=== PATIENT | male | born 1970 | race Caucasian/White ===

== ENCOUNTER 2021-07-27 09:53 | Emergency (ER) | payer SELFPAY ==
--- NOTE | 2021-07-27 09:57 | ED.URI ---
HPI - URI/Sore Throat General Chief Complaint: Upper Respiratory Infection Stated Complaint: cough tight chest Time Seen by Provider: 07/27/21 10:19 Source: patient and RN notes reviewed Mode of arrival: ambulatory Limitations: no limitations History of Present Illness HPI Narrative: 50-year-old male presents concern for 1/2 weeks of cough, shortness of breath, chest tightness, nasal congestion, ear fullness and pain, nasal drainage. He reports he has been taking Mucinex and antihistamines without relief. He denies fever, body aches, chills, sweats. Reports he has been using an albuterol inhaler several times a day which he ran out of this morning. He reports he is a smoker, he denies ever being diagnosed with COPD or emphysema. MD elicited complaint: cough and sore throat Related Data Home Medications Medication Instructions Recorded Confirmed chlorpheniramine-pseudoephed 10 ml PO Q4-6H PRN 07/27/21 07/27/21 [Vicks DayQuil] clonazepam 0.5 mg PO DAILY 07/27/21 07/27/21 guaifenesin [Mucinex] 600 mg PO BID 07/27/21 07/27/21 lisinopril 20 mg PO BID 07/27/21 07/27/21 metoprolol tartrate 50 mg PO BID 07/27/21 07/27/21 Allergies Allergy/AdvReac Type Severity Reaction Status Date / Time Penicillins Allergy Rash Verified 07/27/21 10:13 Review of Systems Review of Systems: CONSTITUTIONAL: Reports malaise. Denies chills, sweats, or fever. EYES: Denies visual changes, redness, or discharge. ENT: Reports rhinorrhea, congestion, sinus pain, otalgia. Denies sore throat. CARDIOVASCULAR: Denies chest pain, palpitations, or edema. RESPIRATORY: Reports cough, dyspnea, chest congestion and tightness. GASTROINTESTINAL: Denies abdominal pain, nausea, vomiting, diarrhea SKIN: Denies rash or itching. MUSCULOSKELETAL: Denies myalgia. NEUROLOGIC: Denies headache. All systems reviewed & are unremarkable except as noted in HPI and below PMFSH Comments At time of signature, agree with nursing past medical, surgical, social and family history. There is no relevant family history pertinent to the presenting complaint Exam Narrative: GENERAL: Well-appearing, well-nourished, and in no acute distress. HEAD: Normocephalic EYES: PERRLA, conjunctivae clear ENT: Nares clear, turbinates edematous and erythematous, sinus tenderness. Mucous membranes moist. TM pearly crow with dull light reflex bilaterally; no tragal tenderness. Oropharynx not erythematous without lesions. Tonsils not enlarged and without exudate, no drooling, no hoarseness, no trismus, uvula midline. NECK: Supple. No lymphadenopathy CHEST: Scattered rhonchi, inspiratory and expiratory wheezing, breath sounds equal. No rales, or stridor. No respiratory distress, speaks in full sentences. HEART: Regular rate and rhythm. No murmur heard. SKIN: Warm, dry, no rash. NEURO: Alert and oriented x3. PSYCH: Normal mood and affect Course Course Emergency Course: Patient is aware of diagnosis, understands and agrees to treatment plan. Anticipatory guidance given. Patient agrees to follow-up as directed and is aware of reasons to seek care at the emergency department. Portions of this record may have been created with voice recognition software Level of Care: [facility] Care Visit Reevaluation(s) Reevaluation #1: JoseCesar torres, Date: 07/27/21 Vital Signs Vital signs: Reviewed. Patient has history of hypertension MDM - URI/Sore Throat MDM Narrative Medical decision making narrative: Differential diagnosis considered: Boles virus, strep pharyngitis, allergic rhinitis, upper respiratory tract infection, sinusitis, rhinosinusitis, nasopharyngitis. viral pharyngitis, otitis media, otitis externa, pneumonia, bronchitis, viral cough syndrome, viral syndrome, and influenza. Exam findings show no acute concerns or changes; patient is non-toxic appearing and is in no distress. Patient is appropriate for outpatient treatment and follow-up. Lab Data Attestation: I reviewed the patient's lab results. Critic
[2021-07-27 09:58] VITALS: BP 144/92; PULSE 91; RESP 14; TEMP 36.9; O2SAT 97
[2021-07-27] MEDS: LEVALBUTEROL NEB 1.25 MG/3 ML INHALATION (10:34)
[2021-07-27] MEDS: IPRATROPIUM BR 0.02% INH SOLN 0.5 MG/2.5 ML VIAL INHALATION (10:34)
[2021-07-27 11:03] VITALS: O2SAT 97
== END 2021-07-27 11:04 | disposition home or self-care (01) ==
PROVIDERS: Emergency Provider Nurse Practitioner
DX: J32.9 Chronic sinusitis, unspecified (principal); J40 Bronchitis, not specified as acute or chronic; F17.200 Nicotine dependence, unspecified, uncomplicated; I10 Essential (primary) hypertension; F41.9 Anxiety disorder, unspecified
CPT/HCPCS: 94640; 99213; G0463